=== PATIENT | female | born 1985 | race Caucasian/White ===

== ENCOUNTER 2019-02-24 20:45 | Emergency (ER) | payer MEDICAID, OTHER ==
--- OUTSIDE RECORDS SUMMARY | 2019-02-24 21:01 | XMS REPORT | Continuity of Care Document ---
:1985 Author Organization [facility] Address [address] [place] [address] Phone Care Team Providers Name Role Phone Catie Saravia Unavailable Unavailable Allergies, Adverse Reactions, Alerts Substance Reaction Status latex Active Medications Medication Instructions Dosage Effective Dates Status Comments (start - stop) metronidazole 500 take 1 tablet by - Active mg tablet oral route 2 times every day, NO ETOH Bactrim DS 800 take 1 tablet by 1.00 tablet - No Longer mg-160 mg tablet oral route every Active 12 hours Problems Condition Effective Dates (start - Clinical Status Comments stop) Encounter for test, result negative Dysuria Urinary tract infection, site not specified Encntr screen for infections w sexl mode of transmiss Acute vaginitis Dysuria Human immunodeficiency virus [HIV] - counseling Encounter for screening for human - immunodeficiency virus Procedures Procedure Date URINE TEST URINALYSIS, DIP NONAUTO W/O SCOPE WET SMEAR ASSAY OF BODY FLUID-PH N.GONORRHOEAE, DNA, AMP PROB CHYLMD DNA, AMP PROBE TRICHOMONAS VAGIN, DIR PROBE OFFICE/OUTPATIENT VISIT, EST OTHER Medical Services 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 STI Results Test Name Date and Time Measure Units Reference Range Abnormal Flag Status Comments Panel Description: C trach DNA XXX Ql PCR Final Swab CT - Negative N Final Performed by:
CDD Vaginal 00:00:00 ([id number])

Panel Description: Amplified GC - Vaginal Final Swab GC - Negative N Final : Vaginal 00:00:00 No

Performed by:
CDD ([id number])

Panel Description: Wet Mount Final Wet Mount 13:00:29 Hyphae/Nupur: noBudding yeast: Final noTrich: noClue cells: yes (>=20%)WBCs: yes (moderate)Amine/Whiff test: positivepH: 5.0 Panel Description: Urine Dipstick Final Urine Dipstick 12:39:06 Glucose: negativeKetones: Final negativeProtein: traceNitrite: positiveLeukocytes: negativeBlood: smallpH: 6.0 Panel Description: High Sensitivity Urine Test Final High Sensitivity Urine 12:35:58 NegativeInternal Quality Final Test Control: Positive Advance Directives Directive Yes / No Effective Date File Name No information Encounters Encounter Practice Location Reason(s) Diagnoses Date Provider Providers Description For Visit Copied on Encounter OFFICE/OUTPA [facility] Pel[facility] Encounter for [facility] Referring TIENT VISIT, [facility] [place] [facility] test, 0-201 Catie. Provider: TERESA Smith (chief result [address] complaint) negativeDysuriaUrin [place], [address], [address] [place] infection, site not [place], [place], [place], specified[place]ntr [place], [place], [place], [place] [address]. [place], [address]. [id number], infections w sexl tel:+[phone] tel:[phone] [place] mode of [phone] tel:[phone] transmissAcute [id number] vaginitis [facility] [place] immunodeficiency 5-201 Catie. Provider: Sarah virus [HIV] [address] counselingEncounter [place], [address], [place] human [place], [address], [place], immunodeficiency [place], [place], [place], virus [address]. [place], [address]. [id number], tel: tel:[phone] tel:[phone] Family History Family Member Diagnosis Age At Onset No information Immunizations Vaccine Date Status Comments No information Payers Payer name Insurance type Covered green party ID Authorization(s) [facility] CI [id number] Social History Type Description Quantity Date Captured Comments Alcohol Use Details Unknown Caffeine Use Details Unknown Tobacco Use Status Unknown Smoking Status Unknown if ever smoked Sex Female Vital Signs Date / Height Weight BMI Pulse Blood Temperature Respiratory Body Head BMI Pulse Inhaled Time: Rate Pressure Rate Surface Circumference percentile Ox Ox Area No information Chief Complaint And Reason For Visit Most recent encounter only, dated '02/01/2019 11:50'. Pelvic Pain (chief complaint) Reason For Referral Reason For Referral No information Plan Of Treatment Date Type Action Status Goal Tobacco cessation counseling completed History Of Present Illness Encounter Date Complaint History Of Present Illness No information Functional Status Date Functional Assessment No information Medications Administered Medication Instructions Dosage Effective Dates (start - stop) Status Comments No information Instructions Date Instruction Additional Information No information Assessments Type Assessment Date assessment Encounter for test, result negative assessment Dysuria assessment Urinary tract infection, site not specified assessment Encntr screen for infections w sexl mode of transmiss assessment Acute vaginitis Goals Health Concern Goal Type Priority Status Date No information Medical Equipment Description Device [place] Device Identifier Effective Dates (start - stop ) Status No information Mental Status Date Cognitive Assessment Normal Orientation Health Concerns Observation Date No information Concern Status Date No information
[2019-02-24 22:04] LABS: ABS Eosinophils 0.1 10^3/ul (0-0.6); ABS Lymphocytes 3.3 10^3/ul (1.0-4.8); ABS Monocytes 0.9 10^3/ul (0-0.8); ABS Neutrophils 10.7 10^3/ul (1.5-7.7); Hematocrit 46 % (35-47); Hemoglobin 15.1 g/dL (12.0-16.0); Lymphocyte % 21.8 %; Mean Corpuscular HGB Conc 33 g/dL (31-36); Mean Corpuscular Hemoglobin 30 pg (27-31); Mean Corpuscular Volume 91 fL (80-97); Mean Platelet Volume 8.4 fL (7.4-10.4); Nucleated Red Blood Cells % 0.1; Platelet Count 322 10^3/uL (150-450); Red Blood Count 5.02 10^6 /uL (3.70-4.87); Red Cell Distribution Width 13 % (10-15)
[2019-02-24 22:13] LABS: INR 1.21 (0.82-1.09)
[2019-02-24 22:20] LABS: ALT 26 U/L (7-52); AST 18 U/L (13-39); Albumin 4.6 g/dL (3.2-5.2); Albumin/Globulin Ratio 1.2 (1-3); Alkaline Phosphatase 80 U/L (34-104); Amylase 16 U/L (29-103); Anion Gap 9 mmol/L (2-11); BUN/Creatinine Ratio 19.2 (8-20); Blood Urea Nitrogen 14 mg/dL (6-24); C Reactive Protein 12.81 mg/L (<8.01); CO2 Carbon Dioxide 25 mmol/L (22-32); Calcium 9.7 mg/dL (8.6-10.3); Chloride 103 mmol/L (101-111); EGFR African American 112.5 (>60); Globulin 3.7 g/dL (2-4); Glucose 83 mg/dL (70-100); Potassium 3.7 mmol/L (3.5-5.0); Sodium 137 mmol/L (135-145); Total Protein 8.3 g/dL (6.4-8.9)
[2019-02-24 22:22] LABS: Urine Appearance Cloudy; Urine Bacteria Absent (Absent); Urine Bilirubin Negative (Negative); Urine Blood 1+ (Negative); Urine Color Yellow; Urine Glucose Negative (Negative); Urine Ketones Negative (Negative); Urine Nitrite Negative (Negative); Urine Protein Negative (Negative); Urine Red Blood Cell Absent (Absent); Urine Specific Gravity 1.024 (1.010-1.030); Urine Squamous Epithelial Cell Present (Absent); Urine Urobilinogen Negative (Negative); Urine White Blood Cell Absent (Absent)
[2019-02-24 22:27] LABS: HCG Pregnancy < 0.60 mIU/mL
[2019-02-24] MEDS ORDERED: NS 0.9% 1000 ML** 1,000 ML IV ONE (22:29)
[2019-02-24] MEDS ORDERED: Ketorolac INJ* 30 MG/ML 1 ML VIAL IV PUSH ONE (22:29)
[2019-02-24] MEDS ORDERED: Iohexol 300* (CONTRAST) 10 ML SDV IV ONE (22:40)
--- NOTE | 2019-02-24 23:26 | ED ---
GI/ HPI - HPI Summary HPI Summary: 33-year-old female presents with 3 weeks of right-sided abdominal pain. States she's been having pain into her back. States that the area feels warm. States feels nauseous. States pain is gotten worse today. States she's had a decreased appetite. She's had her gallbladder removed. Pain doesn't change with food. She has been having diarrhea chronically. She admits to some dysuria. No chest pain or shortness breath. No past medical conditions. Has been taking Tylenol for pain. - History of Current Complaint Chief Complaint: EDAbdPain Time Seen by Provider: 02/24/19 21:55 Stated Complaint: RT SIDE PAIN PER PT Hx Last Menstrual Period: DOES NOT HAVE REGULAR PERIODS. HAS THE IMPLAMON Pain Intensity: 7 - Allergy/Home Medications Allergies/Adverse Reactions: Allergies Allergy/AdvReac Type Severity Reaction Status Date / Time latex Allergy Severe throat Verified 02/24/19 20:51 swelling/hives Home Medications: Home Medications NK [No Home Medications Reported] 02/24/19 [History Confirmed 02/24/19] PMH/Surg Hx/FS Hx/Imm Hx Endocrine/Hematology History: Denies: Hx Diabetes Cardiovascular History: Denies: Hx Hypertension Respiratory History: Denies: Hx Asthma - Surgical History Surgery Procedure, Year, and Place: CHOLYCYSTECTOMY Infectious Disease History: No Infectious Disease History: Denies: Traveled Outside the [place] in Last 30 Days - Family History Known Family History: Positive: Cardiac Disease, Hypertension, Diabetes, Respiratory Disease, Other - RA, ? lupus - Social History Alcohol Use: None Hx Substance Use: No Substance Use Type: Reports: Marijuana Substance Use Comment - Amount & Last Used: Occasional Hx Tobacco Use: No Smoking Status (MU): Former Smoker Have You Smoked in the Last Year: No Review of Systems Negative: Fever Negative: Chest Pain Negative: Shortness Of Breath Positive: Abdominal Pain, Nausea. Negative: Vomiting, Diarrhea Positive: flank pain All Other Systems Reviewed And Are Negative: Yes Physical Exam Triage Information Reviewed: Yes Vital Signs On Initial Exam: Initial Vitals Temp Pulse Resp BP Pulse Ox 98.0 F 85 18 126/90 99 02/24/19 20:46 02/24/19 20:46 02/24/19 20:46 02/24/19 20:46 02/24/19 20:46 Vital Signs Reviewed: Yes Appearance: Positive: Well-Appearing Skin: Positive: Warm, Dry Head/Face: Positive: Normal Head/Face Inspection Eyes: Positive: Normal, Conjunctiva Clear ENT: Positive: Pharynx normal Respiratory/Lung Sounds: Positive: Clear to Auscultation, Breath Sounds Present Cardiovascular: Positive: Normal, RRR Abdomen Description: Positive: Soft, CVA Tenderness (R), Other: - tenderness in RUQ and RLQ Bowel Sounds: Positive: Present Musculoskeletal: Positive: Normal Neurological: Positive: Normal Psychiatric: Positive: Normal Procedures - Sedation Patient Received Moderate/Deep Sedation with Procedure: No Diagnostics - Vital Signs Vital Signs Temp Pulse Resp BP Pulse Ox 02/24/19 20:46 98.0 F 85 18 126/90 99 - Laboratory Lab Results: Lab Results 02/24/19 02/24/19 02/24/19 Range/Units 21:54 21:54 21:54 WBC 15.0 H (3.5-10.8) 10^3/uL RBC 5.02 H (3.70-4.87) 10^6 /uL Hgb 15.1 (12.0-16.0) g/dL Hct 46 (35-47) % MCV 91 (80-97) fL MCH 30 (27-31) pg MCHC 33 (31-36) g/dL RDW 13 (10-15) % Plt Count 322 (150-450) 10^3/uL MPV 8.4 (7.4-10.4) fL Neut % (Auto) 71.2 % Lymph % (Auto) 21.8 % Swisher % (Auto) 5.7 % Eos % (Auto) 1.0 % Baso % (Auto) 0.3 % Absolute Neuts (auto) 10.7 H (1.5-7.7) 10^3/ul Absolute Lymphs (auto) 3.3 (1.0-4.8) 10^3/ul Absolute Monos (auto) 0.9 H (0-0.8) 10^3/ul Absolute Eos (auto) 0.1 (0-0.6) 10^3/ul Absolute Basos (auto) 0.0 (0-0.2) 10^3/ul Absolute Nucleated RBC 0.0 10^3/ul Nucleated RBC % 0.1 INR (Anticoag Therapy) 1.21 H (0.82-1.09) Sodium 137 (135-145) mmol/L Potassium 3.7 (3.5-5.0) mmol/L Chloride 103 (101-111) mmol/L Carbon Dioxide 25 (22-32) mmol/L Anion Gap 9 (2-11) mmol/L BUN 14 (6-24) mg/dL Creatinine 0.73 (0.51-0.95) mg/dL Est GFR ( Amer) 112.5 (>60) Est GFR (Non-Af Amer) 93.0 (>60) BUN/Creatinine Ratio 19.2 (8-20) Glucose 83 (70-100) mg/dL Lactic Acid (0.5-2.0) mmol/L Calcium 9.7 (8.6-10.3) mg/dL Total Bilirubin 0.20 (0.2-1.0) mg/dL AST 18 (13-39) U/L ALT 26 (7-52) U/L Alkaline Phosphatase 80 (34-104) U/L C-Reactive Protein 12.81 H (<8.01) mg/L Total Protein 8.3 (6.4-8.9) g/dL Albumin 4.6 (3.2-5.2) g/dL Globulin 3.7 (2-4) g/dL Albumin/Globulin Ratio 1.2 (1-3) Amylase 16 L (29-103) U/L Lipase 28 (11.0-82.0) U/L Beta HCG, Quant < 0.60 mIU/mL Urine Color Urine Appearance Urine pH (5-9) Ur Specific [place] (1.010-1.030) Urine Protein (Negative) Urine Ketones (Negative) Urine Blood (Negative) Urine Nitrate (Negative) Urine Bilirubin (Negative) Urine Urobilinogen (Negative) Ur Leukocyte Esterase (Negative) Urine WBC (Auto) (Absent) Urine RBC (Auto) (Absent) Ur Squamous Epith Cells (Absent) Urine Bacteria (Absent) Urine Glucose (Negative) 02/24/19 02/24/19 Range/Units 21:54 22:00 WBC (3.5-10.8) 10^3/uL RBC (3.70-4.87) 10^6 /uL Hgb (12.0-16.0) g/dL Hct (35-47) % MCV (80-97) fL MCH (27-31) pg MCHC (31-36) g/dL RDW (10-15) % Plt Count (150-450) 10^3/uL MPV (7.4-10.4) fL Neut % (Auto) % Lymph % (Auto) % Swisher % (Auto) % Eos % (Auto) % Baso % (Auto) % Absolute Neuts (auto) (1.5-7.7) 10^3/ul Absolute Lymphs (auto) (1.0-4.8) 10^3/ul Absolute Monos (auto) (0-0.8) 10^3/ul Absolute Eos (auto) (0-0.6) 10^3/ul Absolute Basos (auto) (0-0.2) 10^3/ul Absolute Nucleated RBC 10^3/ul Nucleated RBC % INR (Anticoag Therapy) (0.82-1.09) Sodium (135-145) mmol/L Potassium (3.5-5.0) mmol/L Chloride (101-111) mmol/L Carbon Dioxide (22-32) mmol/L Anion Gap (2-11) mmol/L BUN (6-24) mg/dL Creatinine (0.51-0.95) mg/dL Est GFR ( Amer) (>60) Est GFR (Non-Af Amer) (>60) BUN/Creatinine Ratio (8-20) Glucose (70-100) mg/dL Lactic Acid 1.2 (0.5-2.0) mmol/L Calcium (8.6-10.3) mg/dL Total Bilirubin (0.2-1.0) mg/dL AST (13-39) U/L ALT (7-52) U/L Alkaline Phosphatase (34-104) U/L C-Reactive Protein (<8.01) mg/L Total Protein (6.4-8.9) g/dL Albumin (3.2-5.2) g/dL Globulin (2-4) g/dL Albumin/Globulin Ratio (1-3) Amylase (29-103) U/L Lipase (11.0-82.0) U/L Beta HCG, Quant mIU/mL Urine Color Yellow Urine Appearance Cloudy Urine pH 5.0 (5-9) Ur Specific [place] 1.024 (1.010-1.030) Urine Protein Negative (Negative) Urine Ketones Negative (Negative) Urine Blood 1+ A (Negative) Urine Nitrate Negative (Negative) Urine Bilirubin Negative (Negative) Urine Urobilinogen Negative (Negative) Ur Leukocyte Esterase Negative (Negative) Urine WBC (Auto) Absent (Absent) Urine RBC (Auto) Absent (Absent) Ur Squamous Epith Cells Present A (Absent) Urine Bacteria Absent (Absent) Urine Glucose Negative (Negative) Result Diagrams: 02/24/19 21:54 02/24/19 21:54 Lab Statement: Any lab studies that have been ordered have been reviewed, and results considered in the medical decision making process. - CT abd CT Interpretation Completed By: Radiologist Summary of CT Findings: IMPRESSION: 1. The appendix is unremarkable. 2. No visible renal, ureteral or bladder calculi. GIGU Course/Dx - Course Course Of Treatment: 33-year-old female presents with 3 weeks of right-sided abdominal pain. States she's been having pain into her back. States that the area feels warm. States feels nauseous. States pain is gotten worse today. States she's had a decreased appetite. She's had her gallbladder removed. Pain doesn't change with food. She has been having diarrhea chronically. She admits to some dysuria. No chest pain or shortness breath. No past medical conditions. Has been taking Tylenol for pain. On exam tenderness in the right upper quadrant or right lower quadrant and right flank. White blood cell 15. urine no infection. crp elevated. CT shows no acute findings. urine no infection. discussed do not have a reason for pain. told to follow up with primary. patient understand and agrees with plan. - Diagnoses Differential Diagnoses - Female: Appendicitis, Pyelonephritis, Urinary Tract Infection, Ureteral Calculi Provider Diagnoses: Abdominal pain Discharge ED - Sign-Out/Discharge Documenting (check all that apply): Patient Departure - Discharge Plan Condition: Good Disposition: HOME Patient Education Materials: Abdominal Pain (ED) Referrals: Reza Caban PA [Primary Care Provider] - Additional Instructions: take tyenlol or ibuprofen for pain every 6 hours follow up with primary within 5 days Return to ED if develop any new or worsening symptoms - Billing Disposition and Condition Condition: GOOD Disposition: Home
[2019-02-25] MEDS ORDERED: Lidocaine 2% VISCOUS* 15 ML UDC PO ONE (00:16)
[2019-02-25] MEDS ORDERED: Al Hydrox/Mg Hydrox/Simet LIQ* 30 ML UDC PO ONE (00:16)
[2019-02-25 00:38] VITALS: BP 138/77
== END 2019-02-25 00:35 | disposition home or self-care (01) ==
LOC: ED 20:45 → MERGE 20:45 → ED 02-25 00:38
DX: R10.9 Unspecified abdominal pain (principal); Z91.040 Latex allergy status; Z90.49 Acquired absence of other specified parts of digestive tract; Z87.891 Personal history of nicotine dependence
CPT/HCPCS: 36415; 74177; 80053; 81003; 81015; 82150; 83605; 83690; 84702; 85025; 85610; 86140; 96361; 96374; 99282; A9270-GY; J1885; Q9967

== ENCOUNTER 2019-06-12 11:23 | Emergency (ER) | payer OTHER ==
[2019-06-12 12:25] VITALS: BP 114/79
--- NOTE | 2019-06-12 12:48 | UC ---
Complaint Female HPI - HPI Summary HPI Summary: Pt presents with c/o bilateral flank pain, dark color urine with "foul odor" X 2-3 days. Pt is also concerned for . Pt has not had a period in 2 months and is sexually active but is not using control method. - History Of Current Complaint Chief Complaint: UCGU Stated Complaint: URINARY Time Seen by Provider: 06/12/19 12:26 Hx Obtained From: Patient Hx Last Menstrual Period: unknown ?: No Onset/Duration: Sudden Onset, Lasting Days, Still Present Timing: Constant Severity Initially: Mild Severity Currently: Mild Pain Intensity: 0 Character: Dull, Burning, Cramping, Colicy Aggravating Factor(s): Nothing Alleviating Factor(s): Nothing Associated Signs And Symptoms: Positive: Back Pain - Risk Factors Ectopic Risk Factor: Maternal Age ^ 30 Ovarian Torsion Risk Factor: Reproductive Age - Allergies/Home Medications Allergies/Adverse Reactions: Allergies Allergy/AdvReac Type Severity Reaction Status Date / Time latex Allergy Severe throat Verified 06/12/19 12:20 swelling/hives PMH/Surg Hx/FS Hx/Imm Hx Previously Healthy: Yes - Surgical History Surgical History: Yes Surgery Procedure, Year, and Place: CHOLYCYSTECTOMY - Family History Known Family History: Positive: Cardiac Disease, Hypertension, Diabetes, Respiratory Disease, Other - RA, ? lupus - Social History Occupation: Employed Full-time Lives: With Family Alcohol Use: None Substance Use Type: None Substance Use Comment - Amount & Last Used: Occasional Smoking Status (MU): Former Smoker Have You Smoked in the Last Year: No When Did the Patient Quit Smoking/Using Tobacco: 12/2014 - Immunization History Hx Tetanus, Diphtheria Vaccination: Yes Vaccination Up to Date: Yes Review of Systems All Other Systems Reviewed And Are Negative: Yes Constitutional: Positive: Negative Skin: Positive: Negative Eyes: Positive: Negative ENT: Positive: Negative Respiratory: Positive: Negative Cardiovascular: Positive: Negative Gastrointestinal: Positive: Abdominal Pain Genitourinary: Positive: Urgency, Other - amenorrhea X 2 months. Motor: Positive: Negative Neurovascular: Positive: Negative Musculoskeletal: Positive: Negative Neurological: Positive: Negative Psychological: Positive: Negative Is Patient Immunocompromised?: No Physical Exam Triage Information Reviewed: Yes Appearance: Obese Vital Signs: Initial Vital Signs Temp 97.9 F 06/12/19 12:21 Pulse 69 02/08/20 12:21 Resp 17 06/12/19 12:21 BP 114/79 06/12/19 12:21 Pulse Ox 100 06/12/19 12:21 Vital Signs Reviewed: Yes Eye Exam: Normal ENT Exam: Normal Dental Exam: Normal Neck exam: Normal Respiratory Exam: Normal Cardiovascular Exam: Normal Abdomen Description: Positive: CVA Tenderness (R), CVA Tenderness (L) Musculoskeletal Exam: Normal Psychological Exam: Normal Skin Exam: Normal Complaint Female Dx - Differential Dx/Diagnosis Differential Diagnosis/HQI/PQRI: , Sexually Transmitted Disease, Urinary Tract Infection Provider Diagnosis: UTI (urinary tract infection), Hematuria, Amenorrhea Discharge ED - Sign-Out/Discharge Documenting (check all that apply): Patient Departure All imaging exams completed and their final reports reviewed: No Studies - Discharge Plan Condition: Stable Disposition: HOME Prescriptions: Cephalexin CAP* [Keflex 500 CAP*] 500 mg PO Q8H #21 cap Patient Education Materials: Urinary Tract Infection in Women (ED), Hematuria ( ED) Referrals: Reza Caban PA [Primary Care Provider] - As Soon As Possible Additional Instructions: Please follow up with your PCP as soon as possible. - Billing Disposition and Condition Condition: STABLE Disposition: Home
== END 2019-06-12 12:59 | disposition home or self-care (01) ==
LOC: UCCORT 11:23
DX: N39.0 Urinary tract infection, site not specified (principal); N91.2 Amenorrhea, unspecified; R31.9 Hematuria, unspecified; Z87.891 Personal history of nicotine dependence; Z91.040 Latex allergy status
CPT/HCPCS: 81003; 84702; 87077; 87086; 87186; 99212; G0463

== ENCOUNTER 2019-07-22 14:01 | Emergency (ER) | payer OTHER ==
[2019-07-22 14:40] VITALS: BP 110/58
--- NOTE | 2019-07-22 15:05 | UC ---
General HPI - HPI Summary HPI Summary: RN notes - "So, it's my low back ... spasming ... " Atraumatic lower left and middle back pain and spasming aggrevated by standing, bending forward, sitting, and lying down; "almost looks like white worms in my eyesight"; headache; nasal congestion , "slightly but not really" cough; nausea with "one or two" episodes of vomiting (most recent episode last night); RLQ abdomen "flattens out" while vomiting then "buldge out" when not vomiting, multiple episodes of "water ... light green" diarrhea; sweats; and fatigue for three to four days. No known fever. Patient stated she has tried a prescription nausea medication and chewable "like Pepto-Bismul" without improvement. Patient asked for a urinalysis and is not actively trying to prevent /period is late. 33 yo female c/o + nausea with episodic vomiting over the last 4 days. no fever / chills no cough / sob / chest pain No abd pain, but + nausea + midlow back pain, no cvat no rash No dysuria / hematuria / freq / urg - History of Current Complaint Chief Complaint: UCBackPain Stated Complaint: LOW BACK PAIN Time Seen by Provider: 07/22/19 15:04 Hx Obtained From: Patient Hx Last Menstrual Period: "The beginning of last month [June]" Pain Intensity: 6 - Allergy/Home Medications Allergies/Adverse Reactions: Allergies Allergy/AdvReac Type Severity Reaction Status Date / Time latex Allergy Severe throat Verified 07/22/19 14:33 swelling/hives Home Medications: Home Medications NK [No Home Medications Reported] 07/22/19 [History Confirmed 07/22/19] PMH/Surg Hx/FS Hx/Imm Hx Previously Healthy: Yes - Surgical History Surgical History: Yes Surgery Procedure, Year, and Place: Cholecystectomy, 2017, [place] - Family History Known Family History: Positive: Cardiac Disease, Hypertension, Diabetes, Respiratory Disease, Other - RA, ? lupus - Social History Alcohol Use: None Substance Use Type: None Substance Use Comment - Amount & Last Used: Occasional Smoking Status (MU): Former Smoker Type: Cigarettes Length of Time of Smoking/Using Tobacco: 3 PPD x 10 Years Have You Smoked in the Last Year: No When Did the Patient Quit Smoking/Using Tobacco: 2014 - Immunization History Hx Tetanus, Diphtheria Vaccination: Yes Vaccination Up to Date: Yes Review of Systems All Other Systems Reviewed And Are Negative: Yes Constitutional: Positive: Negative Skin: Positive: Negative Eyes: Positive: Negative ENT: Positive: Negative Respiratory: Positive: Negative Cardiovascular: Positive: Negative Gastrointestinal: Positive: Vomiting, Nausea Genitourinary: Positive: Other - see hpi Motor: Positive: Negative Neurovascular: Positive: Negative Musculoskeletal: Positive: Negative Neurological/Mental Status: Positive: Negative Psychological: Positive: Negative Is Patient Immunocompromised?: No Physical Exam Triage Information Reviewed: Yes Appearance: Well-Nourished - sitting up, conversing easily. NAD Vital Signs: Initial Vital Signs Temp 98.7 F 07/22/19 14:26 Pulse 80 07/22/19 14:26 Resp 16 07/22/19 14:26 BP 110/58 07/22/19 14:26 Pulse Ox 100 07/22/19 14:26 Vital Signs Reviewed: Yes Eye Exam: Normal ENT Exam: Normal Neck exam: Normal Respiratory Exam: Normal Respiratory: Positive: Chest non-tender, Lungs clear, Normal breath sounds, No respiratory distress, No accessory muscle use Cardiovascular Exam: Normal Cardiovascular: Positive: RRR, Pulses Normal, Brisk Capillary Refill Abdominal Exam: Normal, Other - No cvat see musc sk Abdomen Description: Positive: Soft Musculoskeletal Exam: Other - Moves x 4 ext's, gait steady Tender mid low back lower lumbar region. Some tender L sciatic notch / buttock region. No reports p/d/w. No cvat Neurological Exam: Normal - grossly nonfocal Psychological Exam: Normal Skin Exam: Normal Course/Dx - Course Course Of Treatment: Reviewed dip. + ucg. Pt expresses happiness. She will call her pcp re maynoring re f/u. [ Cx sent (tr blood in dip). See avs instructions. Works at at [employer]. Work note written for one week. Advised to seek medical attention for any worse or new problems. - Diagnoses Provider Diagnosis: , Low back pain Discharge ED - Sign-Out/Discharge Documenting (check all that apply): Patient Departure All imaging exams completed and their final reports reviewed: No Studies - Discharge Plan Condition: Stable Disposition: HOME Patient Education Materials: (ED) Forms: *Work Release Referrals: eRza Caban PA [Primary Care Provider] - Additional Instructions: Urine culture has been sent. You will be notified if you need an antibiotic. Hydrate. Rest. Follow up with your primary care provider. Call tomorrow to schedule an appointment to be seen. Your urine dip showed trace blood. It is important that you have your urine rechecked (check with your doctor about timing) to make sure that this resolves. Please seek medical attention for worse or new problems in the meantime. - Billing Disposition and Condition Condition: STABLE Disposition: Home
--- NOTE | 2019-07-25 07:14 | UC ---
- Progress Note Progress Note: + urine culture with Enterococcus identified. Not treated. Rx sent for nitrofurantoin to her pharmacy. Please advise. Course/Dx - Diagnoses Provider Diagnoses: , Low back pain Discharge ED - Sign-Out/Discharge Documenting (check all that apply): Post-Discharge Follow Up All imaging exams completed and their final reports reviewed: No Studies - Discharge Plan Condition: Stable Disposition: HOME Patient Education Materials: (ED) Forms: *Work Release Referrals: Reza Caban PA [Primary Care Provider] - Additional Instructions: Urine culture has been sent. You will be notified if you need an antibiotic. Hydrate. Rest. Follow up with your primary care provider. Call tomorrow to schedule an appointment to be seen. Your urine dip showed trace blood. It is important that you have your urine rechecked (check with your doctor about timing) to make sure that this resolves. Please seek medical attention for worse or new problems in the meantime. - Billing Disposition and Condition Condition: STABLE Disposition: Home
== END 2019-07-22 15:48 | disposition home or self-care (01) ==
LOC: UCCORT 14:01
DX: M54.5 Low back pain (principal); R11.2 Nausea with vomiting, unspecified; Z32.01 Encounter for pregnancy test, result positive; Z90.49 Acquired absence of other specified parts of digestive tract; Z91.040 Latex allergy status; Z87.891 Personal history of nicotine dependence
CPT/HCPCS: 81003; 84702; 87077; 87086; 87186; 99211; G0463

== ENCOUNTER 2021-12-15 06:04 | Inpatient (IN) ==
[2021-12-15] MEDS ORDERED: Lactated Ringers 1000 ml BAG 1,000 ML IV ONE (09:47)
[2021-12-15] MEDS ORDERED: Buffered Lidocaine 1% SYRIN 1 ml INTRADERM ONE (09:47)
[2021-12-15] MEDS ORDERED: Lactated Ringers 1000 ml BAG 1,000 ML IV SCH ×2 (10:00→13:00)
[2021-12-15 11:20] LABS: ABS Basophils 0.1 10^3/ul (0-0.2); ABS Lymphocytes 2.4 10^3/ul (1.0-4.8); ABS Monocytes 0.5 10^3/ul (0-0.8); ABS Neutrophils 9.7 10^3/ul (1.5-7.7); Eosinophil % 0.2 %; Hematocrit 42 % (35-47); Hemoglobin 13.6 g/dL (12.0-16.0); Lymphocyte % 19.1 %; Mean Corpuscular HGB Conc 33 g/dL (31-36); Mean Corpuscular Hemoglobin 28 pg (27-31); Mean Corpuscular Volume 87 fL (80-97); Nucleated Red Blood Cells % 0.1; Platelet Count 263 10^3/uL (150-450); Red Blood Count 4.78 10^6 /uL (3.70-4.87); Red Cell Distribution Width 15 % (10-15); White Blood Count 12.7 10^3/uL (3.5-10.8)
[2021-12-15 11:44] LABS: Urine Benzodiazepine Screen None Detected (None Detect); Urine Cannabinoids Screen None Detected (None Detect); Urine Opiates Screen None Detected (None Detect)
[2021-12-15] MEDS ORDERED: Glycerin ADULT 2.4 gm SUPP PR PRN (12:22)
[2021-12-15] MEDS ORDERED: Tetan/Diph/Pertus SYR(Tdap) 0.5 ML SYR(BOOSTRIX) use SYR contains LATEX IM ONE (12:22)
[2021-12-15] MEDS ORDERED: Dibucaine 1% OINT 28.35 GM TUBE PR PRN (12:22)
[2021-12-15] MEDS ORDERED: Witch Hazel PAD JAR TOPICAL PRN (12:22)
[2021-12-16 06:56] LABS: ABS Eosinophils 0.2 10^3/ul (0-0.6); ABS Lymphocytes 2.5 10^3/ul (1.0-4.8); ABS Monocytes 0.5 10^3/ul (0-0.8); Eosinophil % 1.7 %; Hematocrit 37 % (35-47); Hemoglobin 12.4 g/dL (12.0-16.0); Lymphocyte % 20.2 %; Mean Corpuscular HGB Conc 33 g/dL (31-36); Mean Corpuscular Hemoglobin 30 pg (27-31); Mean Corpuscular Volume 88 fL (80-97); Platelet Count 251 10^3/uL (150-450); Red Blood Count 4.21 10^6 /uL (3.70-4.87); Red Cell Distribution Width 15 % (10-15); White Blood Count 12.1 10^3/uL (3.5-10.8)
[2021-12-16 11:50] VITALS: BP 137/88
== END 2021-12-16 15:45 | disposition home or self-care (01) | DRG 560 ==
LOC: MCHOBOUT 06:04 → MCHOB 09:50
PROVIDERS: ADMIT Obstetrics & Gynecology; ATTEND Obstetrics & Gynecology

== ENCOUNTER 2024-04-20 11:30 | Inpatient (IN) ==
[2024-05-10] MEDS ORDERED: Naloxone 0.4 mg VIAL 0.4 mg/ml 1 ml VIAL IV PRN (09:39)
[2024-05-10] MEDS ORDERED: Ondansetron 4 mg VIAL 2 MG/ML 2 ml VIAL IV PRN (09:39)
[2024-05-10] MEDS ORDERED: NS 0.45% 1000 ml BAG 1,000 ML IV SCH (10:00)
[2024-05-11] MEDS: Buffered Lidocaine 1% SYRIN 1 ml INTRADERM ONE (12:47)
[2024-05-11] MEDS ORDERED: Midazolam 2 mg/2 ml VIAL 1 mg/ml 2 ml VIAL (2 mg) ONE (12:48)
[2024-05-11] MEDS ORDERED: fentaNYL 250 mcg/5 ml 50 MCG/ML 5 ml VIAL (250 MCG) ONE (12:48)
[2024-05-11] MEDS ORDERED: Propofol 10 MG/ML 20 ML BTL ONE (12:49)
[2024-05-11] MEDS ORDERED: Lidocaine 2% PF 5 ML VIAL ONE ×2 (12:49→16:25)
[2024-05-11] MEDS ORDERED: Scopolamine 1 mg/72hr PATCH ONE (12:51)
[2024-05-11] MEDS ORDERED: ceFAZolin 2 GM PREMIX 2 GM/50 ML BAG ONE (12:51)
[2024-05-11] MEDS ORDERED: ceFAZolin 1 GM in Dextrose 1 GM/50 ML BAG ONE (12:51)
[2024-05-11 12:53] LABS: Rapid COVID-19 Molecular Undetected (Undetected)
[2024-05-11] MEDS ORDERED: Acetaminophen IV 1 GM/100ML 1,000 MG/100 ML BAG IV ONE ×2 (12:54→18:40)
[2024-05-11] MEDS: Scopolamine 1 mg/72hr PATCH TRANSDERM ONE (12:59)
[2024-05-11] MEDS: Lactated Ringers 1000 ml BAG 1,000 ML IV SCH ×2 (12:59→20:27)
[2024-05-11] MEDS: Acetaminophen IV 1 GM/100ML 1,000 MG/100 ML BAG IV ONE ×2 (12:59→19:00)
[2024-05-11] MEDS ORDERED: Heparin 5000 UNITS/ML 1 mL VIAL ONE (13:19)
[2024-05-11] MEDS ORDERED: Methylene Blue 1% (ANTIDOTE) 10 MG/ML 10 ML SDV VIAL IVPB ONE (13:47)
[2024-05-11] MEDS ORDERED: Bupivacaine 0.25% EPI 200,000 30 ML SDV ONE (13:48)
[2024-05-11] MEDS ORDERED: Rocuronium 50 mg VIAL 10 mg/ml 5 ml VIAL (50 mg) ONE (14:08)
[2024-05-11] MEDS ORDERED: KETAMINE HCL 10 MG/ML 20 ml VIAL (200 MG) ONE (14:59)
[2024-05-11] MEDS ORDERED: HYDROmorphone 0.5 MG/0.5 ML SYRINGE ONE (14:59)
[2024-05-11] MEDS ORDERED: Labetalol IV 5 MG/ML 20 ml VIAL ONE (15:13)
[2024-05-11] MEDS ORDERED: Dexamethasone IV 4 MG/ML VIAL 1 ml VIAL ONE (15:19)
[2024-05-11] MEDS ORDERED: Ondansetron 4 mg VIAL 2 MG/ML 2 ml VIAL ONE (15:19)
[2024-05-11] MEDS ORDERED: fentaNYL 100 mcg/2 ml 50 MCG/ML VIAL ONE ×2 (16:15→18:30)
[2024-05-11] MEDS ORDERED: HYDROmorphone 1 MG/1 ML SYRINGE IV SLOW PU PRN (17:29)
[2024-05-11] MEDS ORDERED: HYDROmorphone 0.5 MG/0.5 ML SYRINGE IV SLOW PU PRN (17:29)
[2024-05-11] MEDS ORDERED: Metoclopramide 5 MG/ML VIAL (10 mg) ONE (17:35)
[2024-05-11] MEDS: Metoclopramide 5 MG/ML VIAL (10 mg) IV PRN (17:36)
[2024-05-11] MEDS: fentaNYL 100 mcg/2 ml 50 MCG/ML VIAL IV PRN (18:30)
[2024-05-11] MEDS: Ondansetron 4 mg VIAL 2 MG/ML 2 ml VIAL IV PRN (20:22)
[2024-05-11] MEDS: Famotidine IV 10 MG/ML 2 ml VIAL (20 mg) IV SLOW PU SCH (20:27)
[2024-05-12] MEDS: HYDROcodone/ACET. 7.5/325 LIQ 15 ML UDC PO PRN (08:37)
[2024-05-12 14:36] VITALS: BP 116/81
[2024-05-12] MEDS ORDERED: D5W 1/2 NS KCl 20 meq 1000 ml 1,000 ML IV SCH (18:00)
== END 2024-05-12 15:30 | disposition home or self-care (01) | DRG 403 ==
LOC: EDSTATUS 13:00 → AA 05-11 10:35 → SSU 05-11 19:59
PROVIDERS: ADMIT Surgery; ATTEND Surgery